=== PATIENT | female | born 1945 | race Native Hawaiian/Other Pacific Islander ===

== ENCOUNTER 2017-03-19 01:00 | Emergency (ER) | payer OTHER, MEDICARE ==
[~2017-03-19] VITALS: Ht 157.5 cm; Wt 63.5 kg
[2017-03-19 01:40] LABS: PLATELET COUNT 279 K/uL (152-353)
[2017-03-19 01:48] LABS: POTASSIUM 3.8 mmol/L (3.6-5.2); SODIUM 137 mmol/L (136-145)
[2017-03-19 02:19] LABS: PARTIAL THROMBOPLASTIN TIME 22.4 SECONDS (24.5-33.6)
[2017-03-19 02:47] VITALS: BP 126/69; TEMP 98.7
== END 2017-03-19 02:49 | disposition home or self-care (01) ==
LOC: ED 01:00
DX: R07.89 Other chest pain (principal); J44.9 Chronic obstructive pulmonary disease, unspecified; K29.60 Other gastritis without bleeding; B96.81 Helicobacter pylori [H. pylori] as the cause of diseases classified elsewhere
CPT/HCPCS: 36415; 80053; 82550; 82553; 84484; 85027; 85610; 85730; 86318; 93005; 99284